=== PATIENT | male | born 2000 | race Two or more races ===

== ENCOUNTER → 2022-03-24 | Emergency (ER) | payer BC ==
[~2022-03-24] VITALS: Ht 172.7 cm; Wt 92.5 kg
[2022-03-24 22:12] VITALS: BP 133/76
== END | disposition left against medical advice (07) ==
LOC: ER 21:59
DX: K04.7 Periapical abscess without sinus (principal); K08.89 Other specified disorders of teeth and supporting structures; Z53.21 Procedure and treatment not carried out due to patient leaving prior to being seen by health care provider